=== PATIENT | female | born 1975 | race Two or more races ===

== ENCOUNTER 2025-04-01 19:52 | Emergency (ER) | payer OTHER ==
[~2025-04-01] VITALS: Ht 149.9 cm; Wt 134.2 kg
--- NOTE | 2025-04-01 20:53 | DVH ---
Exam: XY KUB ABDOMEN SINGLE VIEW Indication: Constipation Comparison: None Technique: 3 radiographic views of the abdomen. Findings: Nonspecific bowel-gas pattern. Moderate volume colonic stool. There is no definite evidence for pneumoperitoneum. No abnormal calcifications noted. Impression: Moderate volume colonic stool.
[2025-04-01] MEDS: FLEET ENEMA(ADULT) 135 ML PR ONE (23:36)
[2025-04-01] MEDS: LACTULOSE 20Gm/30ML SOLN PO ONE (23:37)
[2025-04-02 00:29] VITALS: BP 148/86; PULSE 72; RESP 16; TEMP 97.6; O2SAT 95
[2025-04-02] MEDS ORDERED: LACT10SO3 PO (00:33)
[2025-04-02] MEDS ORDERED: DOCU-94 PO (00:33)
--- NOTE | 2025-04-02 00:34 | ED.PDOC ---
GI ASSESSMENT HPI Comments Patient is a pleasant but Moroccan-speaking only and severely morbidly obese 49-year-old female who was brought in the ED today with her daughter for evaluation of constipation concerns. Daughter states the patient has had constipation for nearly two weeks. Daughter states that her mom has passed some scant stool, but complains of belly pain related to the constipation concerns. Patient's history is remarkable for hypertension which the daughter states his poorly controlled. Patient has a history of COPD and utilizes oxygen at home. This was mildly hypertensive on arrival. Chief Complaint: Constipation Time Seen by MD: 20:06 Reviewed Notes: Nurses Notes Allergies: Coded Allergies: NO KNOWN ALLERGIES (Unverified , 04/01/25) Information Source: Patient, Relative (Child) Mode of Arrival: Ambulatory Timing: Weeks Duration: Since onset Prehospital treatment: None Quality: Aching, Cramping Severity: Moderate Recent: None Recent Hx of: None Pain Location: Diffuse, Periumbilical Modifying Factors: Food Associated sign and symptoms: Constipation Past Medical History PAST MEDICAL HISTORY: HTN Surgical History: Denies all surgeries CUSTOMER ACCOUNT MANAGER History: No Pertinent CUSTOMER ACCOUNT MANAGER History Family History Family History: Reviewed,noncontributory to illness, No family hx of Cancer, No family hx of DM, No family hx of Heart ila, No family hx of HTN, No family hx ofKidney ila, No family hx of Liver ila, No family hx of Lung ila, No family hx of Stroke Social History Smoker: Non-Smoker Alcohol: Denies ETOH Use Drugs: Denies Drug Use Lives In: Home Constitutional: denies: chills, diaphoresis, fatigue, fever, malaise, sweats, weakness, others EENTM: denies: blurred vision, double vision, ear bleeding, ear discharge, ear drainage, ear pain, ear ringing, eye pain, eye redness, hearing loss, mouth pain, mouth swelling, nasal discharge, nose bleeding, nose congestion, nose pain, photophobia, tearing, throat pain, throat swelling, voice changes, others Respiratory: denies: cough, hemoptysis, orthopnea, SOB at rest, shortness of breath, SOB with excertion, stridor, wheezing, others Cardiovascular: denies: chest pain, dizzy spells, diaphoresis, Dyspnea on exertion, edema, irregular heart beat, left arm pain, lightheadedness, palpitati ons, PND, syncope, others Gastrointestinal: reports: abdominal pain; denies: abdomen distended, blood streaked bowels, constipated, diarrhea, dysphagia, difficulty swallowing, hematemesis, melena, nausea, poor appetite, poor fluid intake, rectal bleeding, rectal pain, vomiting, others Genitourinary: denies: abnormal vagina bleeding, burning, dyspareunia, dysuria, flank pain, frequency, hematuria, incontinence, pain, , vagina discharge, urgency, others Neurological: denies: dizziness, fainting, headache, left sided numbness, left sided weakness, numbness, paresthesia, pre-existing deficit, right sided numbness, right sided weakness, seizure, speech problems, tingling, tremors, weakness, others Musculoskeletal: denies: back pain, gout, joint pain, joint swelling, muscle pain, muscle stiffness, neck pain, others Integumetry: denies: bruises, change in color, change in hair/nails, dryness, laceration, lesions, lumps, rash, wounds, others Allergic/Immunocompromised: denies: Difficulty Healing, Frequent Infections, Hives, Itching, others Hematologic/Lymphatic: denies: anemia, blood clots, easy bleeding, easy bruising, swollen glands, others Endocrine: denies: excessive hunger, excessive sweating, excessive thirst, excessive urination, flushing, intolerance to cold, intolerance to heat, unexplained weight gain, unexplained weight loss, others Psychiatric: denies: anxiety, bipolar disorder, depression, hopeless, panic dis order, schizophrenia, sleepless, suicidal, others Physical Exam General Appearance: Moderate Distress ([id number] distress due to belly pain concerns.), Obese HEENT: Normal ENT Inspection, Pharynx Normal, TMs Normal Neck: Full Range of Motion, Non-Tender, Normal, Normal Inspection Respiratory: Chest Non-Tender, No Accessory Muscle Use, No Respiratory Distress, Other (Mild rhonchi appreciated right middle and left upper lobe. No accessory muscle use. Patient is on 2 L of O2 via nasal cannula.) Cardiovascular: No Edema, No JVD, No Murmur, No Gallop, Normal Peripheral Pulses, Regular Rate/Rhythm Breast Exam: Deferred Gastrointestinal: Other (Diffuse bilateral lower abdominal tenderness to palpation throughout. Difficult to assess due to the patient's pannus. Abdomen was soft.) Genitalia: Deferred Pelvic: Deferred Rectal: Deferred Extremities: No calf tenderness, Non-tender Neurologic: Alert Cerebellar Function: NOT DONE Reflexes: NOT DONE Skin: Dry, Normal Color, Warm Lymphatic: No Adenopathy Was a procedure done? Was a procedure done?: No GI differential Dx Differential Diagnosis: Constipation X-Ray, Labs, Meds, VS Vital Signs Date Time Temp Pulse Resp B/P (MAP) Pulse Ox O2 Delivery O2 Flow Rate FiO2 04/01/25 20:01 97.6 75 16 151/86 94 97.6 Current Medications Medications (Trade) Dose Ordered Sig/Dontae Route Start Time Stop Time Status Last Admin Lactulose 30 ml ONCE ONCE PO 04/01/25 20:30 04/01/25 20:31 DC 04/01/25 23:37 Sodium Biphosphate/ Sodium Phosphate 135 ml ONCE ONCE IL 04/01/25 20:30 04/01/25 20:31 DC 04/01/25 23:36 Dexamethasone Sodium Phosphate (Decadron Injection) 10 mg ONCE ONCE IM 04/01/25 22:45 04/01/25 22:46 DC 04/01/25 23:37 X-Ray, Labs, Meds, VS Comment All studies performed the ED were evaluated by me personally. Imaging studies confirmed a moderate amount of stool. Patient was provided with lactulose and a Fleet enema and was able to pass a copious bowel movement which relieved the majority the patient's pain concerns. Spent time discussing constipation with the family and advised increasing hydration as well as fiber rich foods. Time of 1ST Reevaluation: 00:32 Reevaluation 1ST: Improved Consultation: PCP Patient Education/Counseling: Diagnosis, Treatment Family Education/Counseling: Diagnosis, Treatment SEPSIS Sepsis Screen Date sepsis recognized/suspect: Apr 01, 2025 Time Sepsis recognized/suspect: 2003 Recent Procedure: No On Antibiotic Therapy: No Respiratory Rate >20: No Heart Rate >90: No Temp<36 C (96.8 F) or >38.3 C: No SBP <90 or MAP <65 mmHG: No New Acute Mental Status Change: No Is the patient on CPAP, BIPAP,: No Physician Orders Kub Abdomen Single View (04/01/25 20:21) Vital Signs Date Time Temp Pulse Resp B/P (MAP) Pulse Ox O2 Delivery O2 Flow Rate FiO2 04/01/25 20:01 97.6 75 16 151/86 94 97.6 Medications Medications Dose Ordered Sig/Dontae Route Start Time Stop Time Status Last Admin Dose Admin Dexamethasone Sodium Phosphate 10 mg ONCE ONCE IM 04/01/25 22:45 04/01/25 22:46 DC 04/01/25 23:37 Lactulose 30 ml ONCE ONCE PO 04/01/25 20:30 04/01/25 20:31 DC 04/01/25 23:37 Sodium Biphosphate/ Sodium Phosphate 135 ml ONCE ONCE [place] 04/01/25 20:30 04/01/25 20:31 DC 04/01/25 23:36 Departure 1 Departure Time of Disposition: 00:32 Impression: Primary Impression: Constipation Disposition: HOME / SELF CARE / HOMELESS Condition: Stable Additional Instructions: Advise utilizing medication as needed for symptomatic relief in additionally, patient should increase hydration as well as increasing fiber rich foods in her diet. Advised dried prunes moving forward. Additionally, advised patient follow up with the primary care provider for discussions related to improved blood pressure management. e-Prescriptions Docusate Sodium (Colace) 100 Mg Cap 1 CAP PO DAILY, #20 CAP Prov: NATACHA MARTINEZ PAC 04/02/25 Lactulose (Lactulose) 10 Gm/15 Ml Roxanne 10 GM PO BIDP PRN, #150 ML Prov: NATACHA MARTINEZ PAC 04/02/25 Discharged With: Self, Relative Critical Care Note Critical Care Time?: No Stability Stability form required: No Heart Score Heart Score: Heart Score Response (Comments) Value History N/A 0 EKG N/A 0 Age N/A 0 Risk Factors N/A 0 Troponin N/A 0 Total 0 NATACHA MARTINEZ PAC Apr 02, 2025 00:34
== END 2025-04-02 01:22 | disposition home or self-care (01) ==
LOC: ER 19:52
DX: K59.00 Constipation, unspecified (principal); I10 Essential (primary) hypertension; J44.9 Chronic obstructive pulmonary disease, unspecified
CPT/HCPCS: 74018; 96372; 99283; J1100